=== PATIENT | male | born 1960 | race Caucasian/White ===

== ENCOUNTER 2020-01-05 15:20 | Emergency (ER) | payer OTHER ==
[~2020-01-05] VITALS: Ht 177.8 cm; Wt 79.8 kg
[2020-01-05 15:27] VITALS: Ht 177.8 cm; Wt 79.8 kg
[2020-01-05 16:18] LABS: AMPHETAMINE QUAL UR NONE DETECTED (See below)
[2020-01-05 16:36] LABS: BASOPHIL % 0.4 % (0-2); PLATELET COUNT 184 x10^3mcL (130-400)
[2020-01-05 16:43] LABS: RED CELL DISTRIBUTION WIDTH 16.9 % (11.5-14.5)
[2020-01-05 16:45] LABS: CALCIUM 8.3 mg/dL (8.5-10.1); CARBON DIOXIDE 30.9 mmol/L (21-32); CHLORIDE SERUM 104 mmol/L (98-107); CREATININE SERUM 1.3 mg/dL (0.7-1.3); GFR1 > 60 mL/min; GLUCOSE SERUM 97 mg/dL (74-106); POTASSIUM SERUM 4.8 mmol/L (3.5-5.1); SODIUM SERUM 140 mmol/L (136-145)
[2020-01-05 16:57] LABS: ALBUMIN 3.6 g/dL (3.4-5.0); ALKALINE PHOSPHATASE 97 U/L (46-116); ALT/SGPT 22 U/L (16-63); AST/SGOT 18 U/L (15-37); BILIRUBIN TOTAL 0.7 mg/dL (0.20-1.00); T4(THYROXINE) 6.5 ug/dL (4.7-13.3); TOTAL PROTEIN, SERUM 6.5 g/dL (6.4-8.2)
[2020-01-05 17:23] LABS: CK-MB 0.7 ng/mL (0-3.6)
[2020-01-05 17:34] VITALS: BP 106/67
== END 2020-01-05 17:34 | disposition home or self-care (01) ==
LOC: ED 15:20
PROVIDERS: Emergency Medicine
DX: I48.91 Unspecified atrial fibrillation (principal); F17.210 Nicotine dependence, cigarettes, uncomplicated
CPT/HCPCS: 83880; 99406